=== PATIENT | female | born 1945 | race Hispanic/Latino ===

== ENCOUNTER 2020-05-18 11:31 | Inpatient (IN) | payer OTHER, MEDICARE ==
[~2020-05-18] VITALS: Ht 165.1 cm; Wt 82.6 kg
[2020-05-18 12:06] LABS: ABG BASE EXCESS -6.8 mmol/L (-2.0-3.0); ABG HCO3 15.9 mmol/L (21.0-28.0); ABG OXYGEN SATURATION 95.2 % (95.0-99.0); ABG PCO2 26 mmHg (32-45)
[2020-05-18 12:21] LABS: BASOPHILS % (AUTO) 0.1 % (0.0-5.0); EOSINOPHILS % (AUTO) 2.9 % (0.0-8.0); HEMATOCRIT 37.4 % (36-48); LYMPHOCYTES % (AUTO) 10.9 % (21.0-51.0); MEAN CORPUSCULAR HEMOGLOBIN 32.1 pg (27.0-33.0); MEAN CORPUSCULAR HGB CONC 33.4 g/dL (32.0-36.0); MEAN CORPUSCULAR VOLUME 96.1 fL (79-99); MONOCYTES % (AUTO) 8.1 % (3.0-13.0); NEUTROPHILS % (AUTO) 77.7 % (40.0-77.0); PLATELET COUNT (AUTO) 182 K/uL (130-400); RED BLOOD CELL COUNT(AUTO) 3.89 MIL/uL (4.00-5.50); RED CELL DISTRIBUTION WIDTH 12.2 % (11.0-15.5); WHITE BLOOD COUNT (AUTO) 6.9 K/uL (4.8-10.8)
[2020-05-18 12:32] LABS: ALBUMIN 3.6 g/dL (3.5-5.0); BILIRUBIN,TOTAL 0.6 mg/dL (0.2-1.0); CREATININE 1.9 mg/dL (0.5-1.5); CRP QUANTITATIVE 79.7 mg/L (0.00-9.0); POTASSIUM 3.8 mmol/L (3.5-5.1); TOTAL PROTEIN, SERUM 8.4 g/dL (6.0-8.3)
[2020-05-18 12:59] LABS: B-TYPE NATRIURETIC PEPTIDE 82 pg/mL (0-100)
[2020-05-18] MEDS ORDERED: DOXYCYCLINE HYCLATE 100 MG TABLET PO ONE (16:08)
[2020-05-18] MEDS ORDERED: SODIUM CHLORIDE 0.9% 50 ML IV ONE (16:09)
[2020-05-18] MEDS ORDERED: DEXAMETHASONE 4 MG TAB ONE (16:09)
[2020-05-18] MEDS ORDERED: CEFTRIAXONE SODIUM 1 GM ONE (16:09)
[2020-05-18] MEDS ORDERED: ENOXAPARIN SODIUM 30 MG/0.3 ML SQ ONE (16:09)
[2020-05-18] MEDS ORDERED: DEXTROSE 50%-WATER 50 ML DISP.SYRIN IV PRN ×2 (16:15→21:15)
[2020-05-18] MEDS ORDERED: GLUCAGON 1MG KIT 1 MG ML IM PRN ×2 (16:15→21:15)
[2020-05-18] MEDS ORDERED: SODIUM CHLORIDE 0.9% 1000ML 1,000 ML IV SCH (21:15)
[2020-05-18] MEDS ORDERED: SODIUM BICARBONATE 650 MG TAB PO SCH (21:15)
[2020-05-18] MEDS ORDERED: SODIUM BICARBONATE 650 MG TAB ONE (22:15)
[2020-05-18] MEDS ORDERED: INSULIN HUMULIN R 100 UNIT/ML 3ML ONE (22:26)
[2020-05-18] MEDS: INSULIN R PO SS1 SQ SCH ×2 (22:47→22:50)
[2020-05-18] MEDS: DOXYCYCLINE HYCLATE 100 MG TABLET PO SCH (22:47)
[2020-05-18] MEDS: ENOXAPARIN SODIUM 30 MG/0.3 ML SQ SCH (22:48)
[2020-05-19] MEDS ORDERED: ENOXAPARIN SODIUM 30 MG/0.3 ML SQ ONE ×2 (04:59→20:17)
[2020-05-19 05:23] LABS: HEMATOCRIT 32.8 % (36-48); MEAN CORPUSCULAR HEMOGLOBIN 32.2 pg (27.0-33.0); MEAN CORPUSCULAR HGB CONC 32.9 g/dL (32.0-36.0); MEAN CORPUSCULAR VOLUME 97.9 fL (79-99); RED BLOOD CELL COUNT(AUTO) 3.35 MIL/uL (4.00-5.50); RED CELL DISTRIBUTION WIDTH 12.3 % (11.0-15.5); WHITE BLOOD COUNT (AUTO) 4.1 K/uL (4.8-10.8)
[2020-05-19 05:23] LABS: ABG BASE EXCESS -4.9 mmol/L (-2.0-3.0); ABG HCO3 19.9 mmol/L (21.0-28.0); ABG OXYGEN SATURATION 90.1 % (95.0-99.0); ABG PCO2 36 mmHg (32-45)
[2020-05-19 06:10] LABS: CRP QUANTITATIVE 49.8 mg/L (0.00-9.0)
[2020-05-19] MEDS ORDERED: LIDOCAINE HCL-MPF 1% 2ML VIAL IV PRN (09:00)
[2020-05-19] MEDS ORDERED: PHARMACY COMMUNICATION MISC SCH (09:00)
[2020-05-19] MEDS ORDERED: POTASSIUM CHLORIDE 20 MEQ ERTAB PO PRN (09:00)
[2020-05-19] MEDS ORDERED: ENOXAPARIN SODIUM 30 MG/0.3 ML SQ SCH (09:00)
[2020-05-19] MEDS ORDERED: POTASSIUM CHLORIDE 20MEQ/100ML 100 ML IV PRN (09:00)
[2020-05-19] MEDS ORDERED: DEXAMETHASONE 4 MG TAB PO SCH (09:00)
[2020-05-19] MEDS ORDERED: POTASSIUM CHLORIDE 10% ELIXIR 20 MEQ/15 ML UDCUP PO PRN (09:00)
[2020-05-19] MEDS ORDERED: DIPHENOXYLATE HCL/ATROPINE 2.5/0.025 MG TAB PO PRN (09:15)
[2020-05-19] MEDS ORDERED: DOXYCYCLINE HYCLATE 100 MG TABLET PO ONE ×2 (10:02→20:16)
[2020-05-19] MEDS ORDERED: DEXAMETHASONE 4 MG TAB ONE (10:02)
[2020-05-19] MEDS ORDERED: CEFTRIAXONE SODIUM 1 GM ONE (10:03)
[2020-05-19] MEDS ORDERED: SODIUM BICARBONATE 650 MG TAB ONE ×3 (10:03→20:16)
[2020-05-19] MEDS ORDERED: POTASSIUM CHLORIDE 20 MEQ ERTAB PO ONE ×2 (10:05→16:17)
[2020-05-19] MEDS ORDERED: POTASSIUM CHLORIDE 10 MEQ in SODIUM CHLORIDE 0.9% 50 ML IV PRN (11:15)
[2020-05-19] MEDS ORDERED: INSULIN HUMULIN R 100 UNIT/ML 3ML ONE ×2 (13:23→18:36)
[2020-05-19] MEDS ORDERED: COMPOUND IV REFRIGERATED 1 EACH IVSOLN MISC PRN (13:45)
[2020-05-19] MEDS ORDERED: REMDESIVIR (INVESTIGATIONAL) 200 MG in SODIUM CHLORIDE 0.9% 250 ML IV SCH (15:00)
[2020-05-19] MEDS ORDERED: ALBUTEROL INHALER 90MCG/INH IH PRN (16:00)
[2020-05-19] MEDS ORDERED: POTASSIUM CHLORIDE 10MEQ/100ML 100 ML IV ONE (18:35)
[2020-05-19] MEDS ORDERED: LIDOCAINE HCL-MPF 1% 2ML VIAL ONE (18:37)
[2020-05-19] MEDS ORDERED: ALBUTEROL INHALER 90MCG/INH IH ONE (19:01)
[2020-05-19] MEDS: SODIUM BICARBONATE 650 MG TAB PO SCH ×3 (20:50→21:00)
[2020-05-19] MEDS: INSULIN R PO SS1 SQ SCH ×3 (20:54→21:00)
[2020-05-19] MEDS: ENOXAPARIN SODIUM 30 MG/0.3 ML SQ SCH ×2 (20:54→21:00)
[2020-05-19] MEDS: DOXYCYCLINE HYCLATE 100 MG TABLET PO SCH ×2 (21:00→22:51)
[2020-05-19 22:24] VITALS: BP 150/85
[2020-05-19] MEDS ORDERED: SITA100T12 PO (22:24)
[2020-05-19] MEDS ORDERED: LOSA100T58 PO (22:25)
[2020-05-19] MEDS ORDERED: AMLO-257 PO (22:26)
[2020-05-19] MEDS ORDERED: ATOR40TA69 PO (22:27)
[2020-05-19] MEDS ORDERED: METF-444 PO (22:28)
[2020-05-19] MEDS: CEFTRIAXONE SODIUM 1 GM IVP SCH (22:48)
[2020-05-19] MEDS: MULTIVITS,STRESS FORMULA/ZINC 1 TABLET PO SCH (22:50)
[2020-05-19 23:55] VITALS: BP_SYST 147; BP_SYST 92; BP_DIAS 44; BP_DIAS 78
[2020-05-20 03:44] VITALS: BP 159/78
[2020-05-20 04:52] LABS: HEMATOCRIT 37.4 % (36-48); MEAN CORPUSCULAR HEMOGLOBIN 32.1 pg (27.0-33.0); MEAN CORPUSCULAR HGB CONC 33.2 g/dL (32.0-36.0); MEAN CORPUSCULAR VOLUME 96.9 fL (79-99); RED BLOOD CELL COUNT(AUTO) 3.86 MIL/uL (4.00-5.50); RED CELL DISTRIBUTION WIDTH 12.4 % (11.0-15.5); WHITE BLOOD COUNT (AUTO) 9.7 K/uL (4.8-10.8)
[2020-05-20 05:05] LABS: ABG BASE EXCESS -5.3 mmol/L (-2.0-3.0); ABG HCO3 18.6 mmol/L (21.0-28.0); ABG OXYGEN SATURATION 90.9 % (95.0-99.0); ABG PCO2 32 mmHg (32-45)
[2020-05-20 05:06] LABS: CREATININE 1.3 mg/dL (0.5-1.5); POTASSIUM 5.2 mmol/L (3.5-5.1)
[2020-05-20] MEDS: PHARMACY COMMUNICATION MISC SCH ×2 (06:00→15:34)
[2020-05-20] MEDS: INSULIN R PO SS1 SQ SCH ×4 (06:27→20:10)
[2020-05-20 07:56] VITALS: BP 147/74
[2020-05-20] MEDS: ENOXAPARIN SODIUM 30 MG/0.3 ML SQ SCH (09:00)
[2020-05-20] MEDS: DOXYCYCLINE HYCLATE 100 MG TABLET PO SCH ×2 (09:32→20:22)
[2020-05-20] MEDS: CEFTRIAXONE SODIUM 1 GM IVP SCH (09:32)
[2020-05-20] MEDS: SODIUM BICARBONATE 650 MG TAB PO SCH ×3 (09:32→20:22)
[2020-05-20] MEDS: DEXAMETHASONE SOD PHOSPHATE 4 MG/ML 1ML VIAL IVP SCH (09:32)
[2020-05-20] MEDS: MULTIVITS,STRESS FORMULA/ZINC 1 TABLET PO SCH (12:00)
[2020-05-20 12:07] VITALS: BP 128/68
[2020-05-20] MEDS: REMDESIVIR (EUA) 520 100 MG in SODIUM CHLORIDE 0.9% 250 ML IV SCH (15:30)
[2020-05-20 16:02] LABS: ALBUMIN 2.6 g/dL (3.5-5.0); BILIRUBIN,DIRECT 0.4 mg/dL (0.0-0.3); BILIRUBIN,TOTAL 0.9 mg/dL (0.2-1.0); TOTAL PROTEIN, SERUM 6.2 g/dL (6.0-8.3)
[2020-05-20 16:32] VITALS: BP 128/91
[2020-05-20] MEDS: ENOXAPARIN SODIUM 40 MG/0.4 ML SYRINGE SQ SCH (20:23)
[2020-05-20 20:24] VITALS: BP 148/81
[2020-05-20 23:50] VITALS: BP_SYST 114; BP_SYST 146; BP_DIAS 66; BP_DIAS 98
[2020-05-21 03:41] VITALS: BP 153/78
[2020-05-21 04:39] LABS: HEMATOCRIT 38.1 % (36-48); MEAN CORPUSCULAR HEMOGLOBIN 31.9 pg (27.0-33.0); MEAN CORPUSCULAR HGB CONC 32.8 g/dL (32.0-36.0); MEAN CORPUSCULAR VOLUME 97.2 fL (79-99); RED BLOOD CELL COUNT(AUTO) 3.92 MIL/uL (4.00-5.50); RED CELL DISTRIBUTION WIDTH 12.4 % (11.0-15.5); WHITE BLOOD COUNT (AUTO) 8.7 K/uL (4.8-10.8)
[2020-05-21 04:55] LABS: CREATININE 1.3 mg/dL (0.5-1.5); POTASSIUM 4.9 mmol/L (3.5-5.1)
[2020-05-21 05:09] LABS: ALBUMIN 2.7 g/dL (3.5-5.0); BILIRUBIN,DIRECT 0.1 mg/dL (0.0-0.3); BILIRUBIN,TOTAL 0.3 mg/dL (0.2-1.0); TOTAL PROTEIN, SERUM 7.1 g/dL (6.0-8.3)
[2020-05-21] MEDS: INSULIN R PO SS1 SQ SCH ×4 (05:25→20:33)
[2020-05-21] MEDS: PHARMACY COMMUNICATION MISC SCH (06:00)
[2020-05-21 08:15] VITALS: BP 146/82
[2020-05-21] MEDS: DEXAMETHASONE SOD PHOSPHATE 4 MG/ML 1ML VIAL IVP SCH (09:13)
[2020-05-21] MEDS: CEFTRIAXONE SODIUM 1 GM IVP SCH (09:16)
[2020-05-21] MEDS: SODIUM BICARBONATE 650 MG TAB PO SCH ×3 (09:16→19:55)
[2020-05-21] MEDS: DOXYCYCLINE HYCLATE 100 MG TABLET PO SCH ×2 (09:16→19:55)
[2020-05-21] MEDS: ENOXAPARIN SODIUM 40 MG/0.4 ML SYRINGE SQ SCH ×2 (09:17→19:56)
[2020-05-21] MEDS: MULTIVITS,STRESS FORMULA/ZINC 1 TABLET PO SCH (12:00)
[2020-05-21] MEDS ORDERED: FUROSEMIDE 10 MG/ML 2ML VIAL IV SCH (12:15)
[2020-05-21 12:20] VITALS: BP 151/71
[2020-05-21] MEDS: REMDESIVIR (EUA) 520 100 MG in SODIUM CHLORIDE 0.9% 250 ML IV SCH (15:02)
[2020-05-21 16:15] VITALS: BP 148/79
[2020-05-21] MEDS: FUROSEMIDE 10 MG/ML 2ML VIAL IV SCH (19:55)
[2020-05-21 20:00] VITALS: BP 148/78
[2020-05-22] VITALS: BP 159/83
[2020-05-22 04:28] VITALS: BP 168/80
[2020-05-22 04:35] LABS: HEMATOCRIT 39.3 % (36-48); MEAN CORPUSCULAR HEMOGLOBIN 31.9 pg (27.0-33.0); MEAN CORPUSCULAR HGB CONC 33.1 g/dL (32.0-36.0); MEAN CORPUSCULAR VOLUME 96.3 fL (79-99); RED BLOOD CELL COUNT(AUTO) 4.08 MIL/uL (4.00-5.50); RED CELL DISTRIBUTION WIDTH 12.4 % (11.0-15.5); WHITE BLOOD COUNT (AUTO) 9.2 K/uL (4.8-10.8)
[2020-05-22 04:51] LABS: CREATININE 1.3 mg/dL (0.5-1.5); POTASSIUM 4.5 mmol/L (3.5-5.1)
[2020-05-22 05:13] LABS: ABG BASE EXCESS -2.2 mmol/L (-2.0-3.0); ABG HCO3 19.4 mmol/L (21.0-28.0); ABG OXYGEN SATURATION 98.1 % (95.0-99.0); ABG PCO2 26 mmHg (32-45)
[2020-05-22] MEDS ORDERED: HYDRALAZINE HCL 20 MG/ML VIAL IV PRN (05:45)
[2020-05-22] MEDS: INSULIN HUMULIN R 100 UNIT/ML 3ML SQ SCH ×4 (07:30→21:01)
[2020-05-22] MEDS: INSULIN R PO SS1 SQ SCH ×4 (07:30→21:00)
[2020-05-22 08:00] VITALS: BP 133/80
[2020-05-22] MEDS: ENOXAPARIN SODIUM 40 MG/0.4 ML SYRINGE SQ SCH ×2 (08:49→19:37)
[2020-05-22] MEDS: DOXYCYCLINE HYCLATE 100 MG TABLET PO SCH ×2 (08:49→19:37)
[2020-05-22] MEDS: SODIUM BICARBONATE 650 MG TAB PO SCH ×3 (08:49→19:37)
[2020-05-22] MEDS: CEFTRIAXONE SODIUM 1 GM IVP SCH (08:51)
[2020-05-22] MEDS: FUROSEMIDE 10 MG/ML 2ML VIAL IV SCH ×2 (08:51→19:37)
[2020-05-22] MEDS: DEXAMETHASONE SOD PHOSPHATE 4 MG/ML 1ML VIAL IVP SCH (08:51)
[2020-05-22] MEDS: PHARMACY COMMUNICATION MISC SCH (11:43)
[2020-05-22 12:00] VITALS: BP 133/71
[2020-05-22] MEDS: MULTIVITS,STRESS FORMULA/ZINC 1 TABLET PO SCH (12:00)
[2020-05-22 12:56] LABS: ALBUMIN 3.2 g/dL (3.5-5.0); BILIRUBIN,DIRECT 0.1 mg/dL (0.0-0.3); BILIRUBIN,TOTAL 0.3 mg/dL (0.2-1.0); TOTAL PROTEIN, SERUM 7.8 g/dL (6.0-8.3)
[2020-05-22] MEDS: REMDESIVIR (EUA) 520 100 MG in SODIUM CHLORIDE 0.9% 250 ML IV SCH (15:23)
[2020-05-22 16:00] VITALS: BP 120/57
[2020-05-22 20:44] VITALS: BP 135/73
[2020-05-23] VITALS (7 sets, daily range): BP systolic 101–133; BP diastolic 41–83
[2020-05-23 04:34] LABS: HEMATOCRIT 38.4 % (36-48); MEAN CORPUSCULAR HEMOGLOBIN 31.8 pg (27.0-33.0); MEAN CORPUSCULAR HGB CONC 33.1 g/dL (32.0-36.0); RED CELL DISTRIBUTION WIDTH 12.2 % (11.0-15.5); WHITE BLOOD COUNT (AUTO) 11.6 K/uL (4.8-10.8)
[2020-05-23 04:57] LABS: ALBUMIN 2.8 g/dL (3.5-5.0); BILIRUBIN,DIRECT 0.1 mg/dL (0.0-0.3); BILIRUBIN,TOTAL 0.4 mg/dL (0.2-1.0); CREATININE 1.2 mg/dL (0.5-1.5); POTASSIUM 4.1 mmol/L (3.5-5.1); TOTAL PROTEIN, SERUM 7.3 g/dL (6.0-8.3)
[2020-05-23] MEDS: INSULIN R PO SS1 SQ SCH ×4 (06:37→20:27)
[2020-05-23] MEDS: INSULIN HUMULIN R 100 UNIT/ML 3ML SQ SCH ×4 (06:37→16:49)
[2020-05-23 07:14] LABS: ABG BASE EXCESS 1.4 mmol/L (-2.0-3.0); ABG HCO3 25.2 mmol/L (21.0-28.0); ABG OXYGEN SATURATION 83.3 % (95.0-99.0); ABG PCO2 37 mmHg (32-45)
[2020-05-23] MEDS: LINAGLIPTIN 5 MG TABLET PO SCH (09:00)
[2020-05-23] MEDS: METFORMIN HCL 500 MG TABLET PO SCH ×2 (09:01→17:57)
[2020-05-23] MEDS: PHARMACY COMMUNICATION MISC SCH (09:01)
[2020-05-23] MEDS: AMLODIPINE BESYLATE 5 MG TAB PO SCH (09:01)
[2020-05-23] MEDS: LOSARTAN 100 MG TABLET PO SCH (09:01)
[2020-05-23] MEDS: DOXYCYCLINE HYCLATE 100 MG TABLET PO SCH ×2 (09:01→19:25)
[2020-05-23] MEDS: SODIUM BICARBONATE 650 MG TAB PO SCH ×3 (09:01→19:25)
[2020-05-23] MEDS: CEFTRIAXONE SODIUM 1 GM IVP SCH (09:02)
[2020-05-23] MEDS: DEXAMETHASONE SOD PHOSPHATE 4 MG/ML 1ML VIAL IVP SCH (09:02)
[2020-05-23] MEDS: ATORVASTATIN CALCIUM 40 MG TABLET PO SCH (09:02)
[2020-05-23] MEDS: FUROSEMIDE 10 MG/ML 2ML VIAL IV SCH ×2 (09:02→19:25)
[2020-05-23] MEDS: ENOXAPARIN SODIUM 40 MG/0.4 ML SYRINGE SQ SCH ×2 (09:05→19:25)
[2020-05-23] MEDS: MULTIVITS,STRESS FORMULA/ZINC 1 TABLET PO SCH (12:00)
[2020-05-23] MEDS: REMDESIVIR (EUA) 520 100 MG in SODIUM CHLORIDE 0.9% 250 ML IV SCH (14:22)
[2020-05-24] VITALS (8 sets, daily range): BP systolic 100–116; BP diastolic 42–72
[2020-05-24 04:30] LABS: BASOPHILS % (AUTO) 0.2 % (0.0-5.0); HEMATOCRIT 36.9 % (36-48); LYMPHOCYTES % (AUTO) 7.6 % (21.0-51.0); MEAN CORPUSCULAR HEMOGLOBIN 31.9 pg (27.0-33.0); MEAN CORPUSCULAR HGB CONC 33.1 g/dL (32.0-36.0); MEAN CORPUSCULAR VOLUME 96.6 fL (79-99); MONOCYTES % (AUTO) 6.2 % (3.0-13.0); PLATELET COUNT (AUTO) 264 K/uL (130-400); RED BLOOD CELL COUNT(AUTO) 3.82 MIL/uL (4.00-5.50); RED CELL DISTRIBUTION WIDTH 12.2 % (11.0-15.5); WHITE BLOOD COUNT (AUTO) 13.5 K/uL (4.8-10.8)
[2020-05-24 04:46] LABS: ALBUMIN 2.5 g/dL (3.5-5.0); BILIRUBIN,DIRECT 0.1 mg/dL (0.0-0.3); BILIRUBIN,TOTAL 0.4 mg/dL (0.2-1.0); MAGNESIUM 2.3 mg/dL (1.80-2.40); PHOSPHORUS 3.8 mg/dL (2.5-4.9); TOTAL PROTEIN, SERUM 6.7 g/dL (6.0-8.3)
[2020-05-24] MEDS: INSULIN HUMULIN R 100 UNIT/ML 3ML SQ SCH ×4 (06:21→20:08)
[2020-05-24] MEDS: INSULIN R PO SS1 SQ SCH (06:21)
[2020-05-24 06:49] LABS: ALBUMIN 2.6 g/dL (3.5-5.0); BILIRUBIN,TOTAL 0.4 mg/dL (0.2-1.0); CREATININE 1.2 mg/dL (0.5-1.5); POTASSIUM 4.4 mmol/L (3.5-5.1); TOTAL PROTEIN, SERUM 6.7 g/dL (6.0-8.3)
[2020-05-24] MEDS: LINAGLIPTIN 5 MG TABLET PO SCH (09:00)
[2020-05-24] MEDS: LOSARTAN 100 MG TABLET PO SCH (09:00)
[2020-05-24] MEDS: AMLODIPINE BESYLATE 5 MG TAB PO SCH (09:00)
[2020-05-24] MEDS: PHARMACY COMMUNICATION MISC SCH (09:27)
[2020-05-24] MEDS: DEXAMETHASONE SOD PHOSPHATE 4 MG/ML 1ML VIAL IVP SCH (09:31)
[2020-05-24] MEDS: SODIUM BICARBONATE 650 MG TAB PO SCH ×3 (09:32→20:05)
[2020-05-24] MEDS: CEFTRIAXONE SODIUM 1 GM IVP SCH (09:32)
[2020-05-24] MEDS: METFORMIN HCL 500 MG TABLET PO SCH ×2 (09:32→17:41)
[2020-05-24] MEDS: FUROSEMIDE 10 MG/ML 2ML VIAL IV SCH (09:32)
[2020-05-24] MEDS: DOXYCYCLINE HYCLATE 100 MG TABLET PO SCH (09:32)
[2020-05-24] MEDS: ATORVASTATIN CALCIUM 40 MG TABLET PO SCH (09:33)
[2020-05-24] MEDS: ENOXAPARIN SODIUM 40 MG/0.4 ML SYRINGE SQ SCH ×2 (09:33→20:05)
[2020-05-24] MEDS: MULTIVITS,STRESS FORMULA/ZINC 1 TABLET PO SCH (12:00)
[2020-05-25 03:55] VITALS: BP 121/54
[2020-05-25 04:42] LABS: ABG BASE EXCESS 2.7 mmol/L (-2.0-3.0); ABG HCO3 26.6 mmol/L (21.0-28.0); ABG OXYGEN SATURATION 85.6 % (95.0-99.0); ABG PCO2 38 mmHg (32-45)
[2020-05-25 05:08] LABS: BASOPHILS % (AUTO) 0.2 % (0.0-5.0); HEMATOCRIT 38.7 % (36-48); LYMPHOCYTES % (AUTO) 5.8 % (21.0-51.0); MEAN CORPUSCULAR HEMOGLOBIN 31.6 pg (27.0-33.0); MEAN CORPUSCULAR HGB CONC 32.8 g/dL (32.0-36.0); MEAN CORPUSCULAR VOLUME 96.3 fL (79-99); MONOCYTES % (AUTO) 6.5 % (3.0-13.0); NEUTROPHILS % (AUTO) 86.3 % (40.0-77.0); PLATELET COUNT (AUTO) 278 K/uL (130-400); RED BLOOD CELL COUNT(AUTO) 4.02 MIL/uL (4.00-5.50); RED CELL DISTRIBUTION WIDTH 12.1 % (11.0-15.5); WHITE BLOOD COUNT (AUTO) 14.2 K/uL (4.8-10.8)
[2020-05-25 05:34] LABS: ALBUMIN 2.4 g/dL (3.5-5.0); BILIRUBIN,TOTAL 0.4 mg/dL (0.2-1.0); CREATININE 1.1 mg/dL (0.5-1.5); MAGNESIUM 2.3 mg/dL (1.80-2.40); PHOSPHORUS 3.2 mg/dL (2.5-4.9); POTASSIUM 4.6 mmol/L (3.5-5.1)
[2020-05-25] MEDS: INSULIN HUMULIN R 100 UNIT/ML 3ML SQ SCH ×4 (06:05→20:05)
[2020-05-25 07:30] VITALS: BP 103/57
[2020-05-25] MEDS: SODIUM BICARBONATE 650 MG TAB PO SCH (08:49)
[2020-05-25] MEDS: LOSARTAN 100 MG TABLET PO SCH (08:49)
[2020-05-25] MEDS: ATORVASTATIN CALCIUM 40 MG TABLET PO SCH (08:49)
[2020-05-25] MEDS: METFORMIN HCL 500 MG TABLET PO SCH ×2 (08:49→17:06)
[2020-05-25] MEDS: LINAGLIPTIN 5 MG TABLET PO SCH (08:50)
[2020-05-25] MEDS: ENOXAPARIN SODIUM 40 MG/0.4 ML SYRINGE SQ SCH ×2 (08:50→20:05)
[2020-05-25] MEDS: AMLODIPINE BESYLATE 5 MG TAB PO SCH (08:51)
[2020-05-25] MEDS: DEXAMETHASONE SOD PHOSPHATE 4 MG/ML 1ML VIAL IVP SCH ×3 (08:51→20:05)
[2020-05-25] MEDS ORDERED: ZINC SULFATE 220 CAPSULE PO SCH (11:15)
[2020-05-25] MEDS: MULTIVITS,STRESS FORMULA/ZINC 1 TABLET PO SCH (11:24)
[2020-05-25 11:34] VITALS: BP 115/47
[2020-05-25 16:00] VITALS: BP 102/59
[2020-05-25] MEDS: FUROSEMIDE 10 MG/ML 2ML VIAL IV SCH (17:06)
[2020-05-25] MEDS: ASCORBIC ACID 500 MG TAB PO SCH (20:05)
[2020-05-25 20:08] VITALS: BP 119/53
[2020-05-26] VITALS (7 sets, daily range): BP systolic 102–136; BP diastolic 54–76
[2020-05-26] MEDS: FUROSEMIDE 10 MG/ML 2ML VIAL IV SCH ×2 (03:30→13:14)
[2020-05-26 04:39] LABS: HEMATOCRIT 36.3 % (36-48); MEAN CORPUSCULAR HEMOGLOBIN 31.9 pg (27.0-33.0); MEAN CORPUSCULAR HGB CONC 33.1 g/dL (32.0-36.0); MEAN CORPUSCULAR VOLUME 96.5 fL (79-99); RED BLOOD CELL COUNT(AUTO) 3.76 MIL/uL (4.00-5.50); RED CELL DISTRIBUTION WIDTH 12.1 % (11.0-15.5); WHITE BLOOD COUNT (AUTO) 12.1 K/uL (4.8-10.8)
[2020-05-26 05:15] LABS: ALBUMIN 2.3 g/dL (3.5-5.0); BILIRUBIN,TOTAL 0.5 mg/dL (0.2-1.0); CREATININE 1.2 mg/dL (0.5-1.5); POTASSIUM 5.2 mmol/L (3.5-5.1); TOTAL PROTEIN, SERUM 6.7 g/dL (6.0-8.3)
[2020-05-26] MEDS: INSULIN HUMULIN R 100 UNIT/ML 3ML SQ SCH ×4 (06:00→21:22)
[2020-05-26] MEDS: METFORMIN HCL 500 MG TABLET PO SCH ×2 (08:00→17:00)
[2020-05-26 08:37] LABS: ABG HCO3 26.5 mmol/L (21.0-28.0); ABG OXYGEN SATURATION 89.9 % (95.0-99.0); ABG PCO2 41 mmHg (32-45)
[2020-05-26] MEDS: DEXAMETHASONE SOD PHOSPHATE 4 MG/ML 1ML VIAL IVP SCH ×2 (09:00→21:20)
[2020-05-26] MEDS: MULTIVITAMIN TABLET PO SCH (09:00)
[2020-05-26] MEDS: AMLODIPINE BESYLATE 5 MG TAB PO SCH (09:00)
[2020-05-26] MEDS: ATORVASTATIN CALCIUM 40 MG TABLET PO SCH (09:00)
[2020-05-26] MEDS: ASCORBIC ACID 500 MG TAB PO SCH ×2 (09:00→21:20)
[2020-05-26] MEDS: ZINC SULFATE 220 CAPSULE PO SCH (09:00)
[2020-05-26] MEDS: LINAGLIPTIN 5 MG TABLET PO SCH (09:00)
[2020-05-26] MEDS: LOSARTAN 100 MG TABLET PO SCH (09:00)
[2020-05-26] MEDS: ENOXAPARIN SODIUM 40 MG/0.4 ML SYRINGE SQ SCH ×2 (09:00→21:24)
[2020-05-26] MEDS: MULTIVITS,STRESS FORMULA/ZINC 1 TABLET PO SCH (12:00)
[2020-05-26 18:08] LABS: CREATININE 1.4 mg/dL (0.5-1.5); POTASSIUM 5.1 mmol/L (3.5-5.1)
[2020-05-27 03:00] VITALS: BP 135/75
[2020-05-27] MEDS: FUROSEMIDE 10 MG/ML 2ML VIAL IV SCH ×2 (03:58→10:40)
[2020-05-27 04:28] LABS: ABG BASE EXCESS -0.3 mmol/L (-2.0-3.0); ABG HCO3 23.9 mmol/L (21.0-28.0); ABG OXYGEN SATURATION 86.6 % (95.0-99.0); ABG PCO2 38 mmHg (32-45)
[2020-05-27 04:33] LABS: BASOPHILS % (AUTO) 0.1 % (0.0-5.0); HEMATOCRIT 38.6 % (36-48); LYMPHOCYTES % (AUTO) 4.2 % (21.0-51.0); MEAN CORPUSCULAR HEMOGLOBIN 31.7 pg (27.0-33.0); MEAN CORPUSCULAR HGB CONC 32.1 g/dL (32.0-36.0); MEAN CORPUSCULAR VOLUME 98.7 fL (79-99); MONOCYTES % (AUTO) 4.8 % (3.0-13.0); NEUTROPHILS % (AUTO) 89.7 % (40.0-77.0); PLATELET COUNT (AUTO) 324 K/uL (130-400); RED BLOOD CELL COUNT(AUTO) 3.91 MIL/uL (4.00-5.50); RED CELL DISTRIBUTION WIDTH 12.4 % (11.0-15.5)
[2020-05-27 05:11] LABS: ALBUMIN 2.4 g/dL (3.5-5.0); BILIRUBIN,TOTAL 0.6 mg/dL (0.2-1.0); CREATININE 1.3 mg/dL (0.5-1.5); MAGNESIUM 2.7 mg/dL (1.80-2.40); PHOSPHORUS 4.6 mg/dL (2.5-4.9); POTASSIUM 5.1 mmol/L (3.5-5.1); TOTAL PROTEIN, SERUM 6.6 g/dL (6.0-8.3)
[2020-05-27] MEDS: INSULIN HUMULIN R 100 UNIT/ML 3ML SQ SCH ×4 (06:13→19:44)
[2020-05-27] MEDS: METFORMIN HCL 500 MG TABLET PO SCH ×2 (08:00→17:30)
[2020-05-27 08:30] VITALS: BP 101/57
[2020-05-27] MEDS: ZINC SULFATE 220 CAPSULE PO SCH (10:24)
[2020-05-27] MEDS: LINAGLIPTIN 5 MG TABLET PO SCH (10:24)
[2020-05-27] MEDS: LOSARTAN 100 MG TABLET PO SCH (10:24)
[2020-05-27] MEDS: ASCORBIC ACID 500 MG TAB PO SCH ×2 (10:24→19:45)
[2020-05-27] MEDS: ATORVASTATIN CALCIUM 40 MG TABLET PO SCH (10:24)
[2020-05-27] MEDS: DEXAMETHASONE SOD PHOSPHATE 4 MG/ML 1ML VIAL IVP SCH ×2 (10:24→19:45)
[2020-05-27] MEDS: MULTIVITAMIN TABLET PO SCH (10:24)
[2020-05-27] MEDS: AMLODIPINE BESYLATE 5 MG TAB PO SCH (10:24)
[2020-05-27] MEDS: ENOXAPARIN SODIUM 40 MG/0.4 ML SYRINGE SQ SCH ×2 (10:25→19:45)
[2020-05-27 12:00] VITALS: BP 111/55
[2020-05-27] MEDS: MULTIVITS,STRESS FORMULA/ZINC 1 TABLET PO SCH (12:00)
[2020-05-27 16:30] VITALS: BP 119/69
[2020-05-27 19:00] VITALS: BP 100/56
[2020-05-27 23:00] VITALS: BP 102/53
[2020-05-28 03:00] VITALS: BP 104/53
[2020-05-28 05:08] LABS: ABG BASE EXCESS -3.3 mmol/L (-2.0-3.0); ABG HCO3 20.9 mmol/L (21.0-28.0); ABG OXYGEN SATURATION 98.6 % (95.0-99.0); ABG PCO2 35 mmHg (32-45)
[2020-05-28] MEDS: INSULIN HUMULIN R 100 UNIT/ML 3ML SQ SCH ×4 (05:15→20:29)
[2020-05-28 05:16] LABS: BASOPHILS % (AUTO) 0.2 % (0.0-5.0); HEMATOCRIT 38.4 % (36-48); LYMPHOCYTES % (AUTO) 3.5 % (21.0-51.0); MEAN CORPUSCULAR HEMOGLOBIN 32.1 pg (27.0-33.0); MEAN CORPUSCULAR HGB CONC 32.3 g/dL (32.0-36.0); MEAN CORPUSCULAR VOLUME 99.5 fL (79-99); MONOCYTES % (AUTO) 4.4 % (3.0-13.0); NEUTROPHILS % (AUTO) 90.7 % (40.0-77.0); PLATELET COUNT (AUTO) 247 K/uL (130-400); RED BLOOD CELL COUNT(AUTO) 3.86 MIL/uL (4.00-5.50); RED CELL DISTRIBUTION WIDTH 12.1 % (11.0-15.5); WHITE BLOOD COUNT (AUTO) 17.9 K/uL (4.8-10.8)
[2020-05-28 05:34] LABS: ALBUMIN 2.4 g/dL (3.5-5.0); BILIRUBIN,TOTAL 0.5 mg/dL (0.2-1.0); CREATININE 1.8 mg/dL (0.5-1.5); MAGNESIUM 2.9 mg/dL (1.80-2.40); PHOSPHORUS 4.8 mg/dL (2.5-4.9); POTASSIUM 5.4 mmol/L (3.5-5.1); TOTAL PROTEIN, SERUM 6.1 g/dL (6.0-8.3)
[2020-05-28] MEDS: LACTATED RINGERS 1000ML 1,000 ML IV SCH (07:30)
[2020-05-28 08:00] VITALS: BP 125/68
[2020-05-28] MEDS: METFORMIN HCL 500 MG TABLET PO SCH ×2 (08:00→17:00)
[2020-05-28] MEDS: AMLODIPINE BESYLATE 5 MG TAB PO SCH (10:46)
[2020-05-28] MEDS: DEXAMETHASONE SOD PHOSPHATE 4 MG/ML 1ML VIAL IVP SCH ×2 (10:46→19:51)
[2020-05-28] MEDS: ATORVASTATIN CALCIUM 40 MG TABLET PO SCH (10:46)
[2020-05-28] MEDS: ZINC SULFATE 220 CAPSULE PO SCH (10:46)
[2020-05-28] MEDS: ENOXAPARIN SODIUM 40 MG/0.4 ML SYRINGE SQ SCH ×2 (10:46→19:51)
[2020-05-28] MEDS: MULTIVITAMIN TABLET PO SCH (10:46)
[2020-05-28] MEDS: LINAGLIPTIN 5 MG TABLET PO SCH (10:46)
[2020-05-28] MEDS: LOSARTAN 100 MG TABLET PO SCH (10:46)
[2020-05-28] MEDS: ASCORBIC ACID 500 MG TAB PO SCH ×2 (10:46→19:51)
[2020-05-28 12:00] VITALS: BP 128/66
[2020-05-28] MEDS: MULTIVITS,STRESS FORMULA/ZINC 1 TABLET PO SCH (13:57)
[2020-05-28] MEDS ORDERED: SODIUM POLYSTYRENE SULFONATE 15 GM/60 ML ML PO SCH (15:15)
[2020-05-28 16:00] VITALS: BP 123/61
[2020-05-28] MEDS ORDERED: ACETAMINOPHEN 325 MG TAB ONE (17:57)
[2020-05-28 19:00] VITALS: BP 103/45
[2020-05-28 23:00] VITALS: BP 113/61
[2020-05-29 03:00] VITALS: BP 122/59
[2020-05-29] MEDS: LACTATED RINGERS 1000ML 1,000 ML IV SCH (03:30)
[2020-05-29 05:05] LABS: BASOPHILS % (AUTO) 0.1 % (0.0-5.0); EOSINOPHILS % (AUTO) 0.1 % (0.0-8.0); HEMATOCRIT 39.7 % (36-48); LYMPHOCYTES % (AUTO) 3.8 % (21.0-51.0); MEAN CORPUSCULAR HEMOGLOBIN 31.6 pg (27.0-33.0); MEAN CORPUSCULAR HGB CONC 32.7 g/dL (32.0-36.0); MEAN CORPUSCULAR VOLUME 96.4 fL (79-99); MONOCYTES % (AUTO) 3.6 % (3.0-13.0); NEUTROPHILS % (AUTO) 91.6 % (40.0-77.0); PLATELET COUNT (AUTO) 135 K/uL (130-400); RED BLOOD CELL COUNT(AUTO) 4.12 MIL/uL (4.00-5.50); RED CELL DISTRIBUTION WIDTH 11.8 % (11.0-15.5); WHITE BLOOD COUNT (AUTO) 16.5 K/uL (4.8-10.8)
[2020-05-29 05:28] LABS: ALBUMIN 2.4 g/dL (3.5-5.0); BILIRUBIN,TOTAL 0.5 mg/dL (0.2-1.0); CREATININE 1.5 mg/dL (0.5-1.5); MAGNESIUM 3.1 mg/dL (1.80-2.40); PHOSPHORUS 5.3 mg/dL (2.5-4.9); POTASSIUM 5.5 mmol/L (3.5-5.1); TOTAL PROTEIN, SERUM 6.8 g/dL (6.0-8.3)
[2020-05-29] MEDS: INSULIN HUMULIN R 100 UNIT/ML 3ML SQ SCH ×4 (05:57→19:47)
[2020-05-29 07:30] VITALS: BP 111/61
[2020-05-29] MEDS: ENOXAPARIN SODIUM 40 MG/0.4 ML SYRINGE SQ SCH ×2 (09:26→20:16)
[2020-05-29] MEDS: MULTIVITAMIN TABLET PO SCH (09:27)
[2020-05-29] MEDS: ZINC SULFATE 220 CAPSULE PO SCH (09:27)
[2020-05-29] MEDS: ATORVASTATIN CALCIUM 40 MG TABLET PO SCH (09:27)
[2020-05-29] MEDS: ASCORBIC ACID 500 MG TAB PO SCH ×2 (09:27→20:16)
[2020-05-29] MEDS: DEXAMETHASONE SOD PHOSPHATE 4 MG/ML 1ML VIAL IVP SCH ×2 (09:27→20:16)
[2020-05-29] MEDS: AMLODIPINE BESYLATE 5 MG TAB PO SCH (09:27)
[2020-05-29] MEDS: LOSARTAN 100 MG TABLET PO SCH (09:27)
[2020-05-29] MEDS: METFORMIN HCL 500 MG TABLET PO SCH ×2 (09:45→17:03)
[2020-05-29] MEDS: LINAGLIPTIN 5 MG TABLET PO SCH (10:35)
[2020-05-29] MEDS: MULTIVITS,STRESS FORMULA/ZINC 1 TABLET PO SCH (12:17)
[2020-05-29 12:38] VITALS: BP 103/52
[2020-05-29 17:29] VITALS: BP 117/55
[2020-05-29 19:29] VITALS: BP 100/70
[2020-05-29 23:07] VITALS: BP 115/56
[2020-05-30 03:59] VITALS: BP 105/58
[2020-05-30 04:05] LABS: ABG BASE EXCESS -2.8 mmol/L (-2.0-3.0); ABG OXYGEN SATURATION 92.3 % (95.0-99.0); ABG PCO2 34 mmHg (32-45)
[2020-05-30 04:51] LABS: BASOPHILS % (AUTO) 0.1 % (0.0-5.0); HEMATOCRIT 38.1 % (36-48); LYMPHOCYTES % (AUTO) 2.4 % (21.0-51.0); MEAN CORPUSCULAR HEMOGLOBIN 31.5 pg (27.0-33.0); MEAN CORPUSCULAR HGB CONC 32.3 g/dL (32.0-36.0); MEAN CORPUSCULAR VOLUME 97.4 fL (79-99); MONOCYTES % (AUTO) 1.4 % (3.0-13.0); NEUTROPHILS % (AUTO) 95.6 % (40.0-77.0); PLATELET COUNT (AUTO) 297 K/uL (130-400); RED BLOOD CELL COUNT(AUTO) 3.91 MIL/uL (4.00-5.50); RED CELL DISTRIBUTION WIDTH 11.9 % (11.0-15.5); WHITE BLOOD COUNT (AUTO) 16.4 K/uL (4.8-10.8)
[2020-05-30 05:10] LABS: ALBUMIN 2.4 g/dL (3.5-5.0); BILIRUBIN,TOTAL 0.6 mg/dL (0.2-1.0); CREATININE 1.6 mg/dL (0.5-1.5); MAGNESIUM 2.6 mg/dL (1.80-2.40); PHOSPHORUS 4.6 mg/dL (2.5-4.9); POTASSIUM 5.3 mmol/L (3.5-5.1); TOTAL PROTEIN, SERUM 6.5 g/dL (6.0-8.3)
[2020-05-30] MEDS: INSULIN HUMULIN R 100 UNIT/ML 3ML SQ SCH ×5 (07:16→20:57)
[2020-05-30 08:00] VITALS: BP 116/45
[2020-05-30] MEDS ORDERED: LOSARTAN 100 MG TABLET PO SCH (09:00)
[2020-05-30] MEDS: ZINC SULFATE 220 CAPSULE PO SCH (09:22)
[2020-05-30] MEDS: AMLODIPINE BESYLATE 5 MG TAB PO SCH (09:22)
[2020-05-30] MEDS: ENOXAPARIN SODIUM 40 MG/0.4 ML SYRINGE SQ SCH ×2 (09:22→20:27)
[2020-05-30] MEDS: ATORVASTATIN CALCIUM 40 MG TABLET PO SCH (09:22)
[2020-05-30] MEDS: ASCORBIC ACID 500 MG TAB PO SCH ×2 (09:22→20:27)
[2020-05-30] MEDS: LINAGLIPTIN 5 MG TABLET PO SCH (09:22)
[2020-05-30] MEDS: MULTIVITAMIN TABLET PO SCH (09:22)
[2020-05-30] MEDS: METFORMIN HCL 500 MG TABLET PO SCH (09:22)
[2020-05-30 11:53] VITALS: BP 116/45
[2020-05-30] MEDS: MULTIVITS,STRESS FORMULA/ZINC 1 TABLET PO SCH (14:06)
[2020-05-30 17:02] VITALS: BP 110/56
[2020-05-30 20:40] VITALS: BP 94/48
[2020-05-30 23:50] VITALS: BP 109/45
[2020-05-31] VITALS (8 sets, daily range): BP systolic 81–127; BP diastolic 44–58
[2020-05-31] MEDS: INSULIN HUMULIN R 100 UNIT/ML 3ML SQ SCH ×4 (06:29→20:29)
[2020-05-31] MEDS: ASCORBIC ACID 500 MG TAB PO SCH ×2 (10:25→20:17)
[2020-05-31] MEDS: ZINC SULFATE 220 CAPSULE PO SCH (10:25)
[2020-05-31] MEDS: AMLODIPINE BESYLATE 5 MG TAB PO SCH (10:25)
[2020-05-31] MEDS: MULTIVITAMIN TABLET PO SCH (10:25)
[2020-05-31] MEDS: ENOXAPARIN SODIUM 40 MG/0.4 ML SYRINGE SQ SCH ×2 (10:26→20:17)
[2020-05-31] MEDS: ATORVASTATIN CALCIUM 40 MG TABLET PO SCH (10:26)
[2020-05-31] MEDS: MULTIVITS,STRESS FORMULA/ZINC 1 TABLET PO SCH (12:17)
[2020-05-31 14:44] LABS: BASOPHILS % (AUTO) 0.1 % (0.0-5.0); EOSINOPHILS % (AUTO) 0.2 % (0.0-8.0); HEMATOCRIT 35.4 % (36-48); LYMPHOCYTES % (AUTO) 3.6 % (21.0-51.0); MEAN CORPUSCULAR HEMOGLOBIN 32.6 pg (27.0-33.0); MEAN CORPUSCULAR HGB CONC 33.6 g/dL (32.0-36.0); MONOCYTES % (AUTO) 3.2 % (3.0-13.0); PLATELET COUNT (AUTO) 171 K/uL (130-400); RED BLOOD CELL COUNT(AUTO) 3.65 MIL/uL (4.00-5.50); RED CELL DISTRIBUTION WIDTH 11.9 % (11.0-15.5); WHITE BLOOD COUNT (AUTO) 22.5 K/uL (4.8-10.8)
[2020-05-31 14:55] LABS: CREATININE 1.6 mg/dL (0.5-1.5); POTASSIUM 4.3 mmol/L (3.5-5.1)
[2020-05-31 16:40] LABS: ABG BASE EXCESS -1.5 mmol/L (-2.0-3.0); ABG HCO3 21.9 mmol/L (21.0-28.0); ABG OXYGEN SATURATION 89.5 % (95.0-99.0); ABG PCO2 33 mmHg (32-45)
[2020-06-01] VITALS (7 sets, daily range): BP systolic 94–117; BP diastolic 47–80
[2020-06-01 04:57] LABS: BASOPHILS % (AUTO) 0.2 % (0.0-5.0); EOSINOPHILS % (AUTO) 0.4 % (0.0-8.0); HEMATOCRIT 34.6 % (36-48); LYMPHOCYTES % (AUTO) 4.2 % (21.0-51.0); MEAN CORPUSCULAR HEMOGLOBIN 31.9 pg (27.0-33.0); MEAN CORPUSCULAR HGB CONC 33.2 g/dL (32.0-36.0); MEAN CORPUSCULAR VOLUME 96.1 fL (79-99); MONOCYTES % (AUTO) 2.7 % (3.0-13.0); NEUTROPHILS % (AUTO) 91.4 % (40.0-77.0); PLATELET COUNT (AUTO) 188 K/uL (130-400); RED CELL DISTRIBUTION WIDTH 11.9 % (11.0-15.5); WHITE BLOOD COUNT (AUTO) 18.7 K/uL (4.8-10.8)
[2020-06-01 05:13] LABS: CREATININE 1.3 mg/dL (0.5-1.5); POTASSIUM 3.6 mmol/L (3.5-5.1)
[2020-06-01] MEDS: INSULIN HUMULIN R 100 UNIT/ML 3ML SQ SCH ×4 (07:27→22:12)
[2020-06-01] MEDS: ASCORBIC ACID 500 MG TAB PO SCH ×2 (09:08→22:07)
[2020-06-01] MEDS: ATORVASTATIN CALCIUM 40 MG TABLET PO SCH (09:08)
[2020-06-01] MEDS: ENOXAPARIN SODIUM 40 MG/0.4 ML SYRINGE SQ SCH ×2 (09:08→22:08)
[2020-06-01] MEDS: ZINC SULFATE 220 CAPSULE PO SCH (09:08)
[2020-06-01] MEDS: MULTIVITAMIN TABLET PO SCH (09:08)
[2020-06-01] MEDS: METHYLPREDNISOLONE SOD SUCC 125MG/2ML VIAL IVP SCH ×3 (11:59→22:09)
[2020-06-01] MEDS: MULTIVITS,STRESS FORMULA/ZINC 1 TABLET PO SCH (16:32)
[2020-06-01] MEDS ORDERED: GLUCAGON 1MG KIT 1 MG ML IM PRN (21:00)
[2020-06-01] MEDS ORDERED: INSULIN HUMULIN R 100 UNIT/ML 3ML SQ SCH (21:00)
[2020-06-01] MEDS ORDERED: DEXTROSE 50%-WATER 50 ML DISP.SYRIN IV PRN (21:00)
[2020-06-02 03:56] VITALS: BP 133/62
[2020-06-02 05:16] LABS: HEMATOCRIT 33.4 % (36-48); MEAN CORPUSCULAR HEMOGLOBIN 32.2 pg (27.0-33.0); MEAN CORPUSCULAR HGB CONC 33.8 g/dL (32.0-36.0); MEAN CORPUSCULAR VOLUME 95.2 fL (79-99); RED BLOOD CELL COUNT(AUTO) 3.51 MIL/uL (4.00-5.50); RED CELL DISTRIBUTION WIDTH 11.8 % (11.0-15.5); WHITE BLOOD COUNT (AUTO) 13.9 K/uL (4.8-10.8)
[2020-06-02 05:43] LABS: ALBUMIN 2.1 g/dL (3.5-5.0); BILIRUBIN,TOTAL 0.5 mg/dL (0.2-1.0); CREATININE 1.3 mg/dL (0.5-1.5); POTASSIUM 3.9 mmol/L (3.5-5.1); TOTAL PROTEIN, SERUM 6.5 g/dL (6.0-8.3)
[2020-06-02] MEDS: METHYLPREDNISOLONE SOD SUCC 125MG/2ML VIAL IVP SCH ×3 (06:37→21:46)
[2020-06-02] MEDS: INSULIN HUMULIN R 100 UNIT/ML 3ML SQ SCH ×5 (06:38→21:51)
[2020-06-02 07:09] LABS: ABG BASE EXCESS 2.8 mmol/L (-2.0-3.0); ABG HCO3 25.8 mmol/L (21.0-28.0); ABG OXYGEN SATURATION 95.6 % (95.0-99.0); ABG PCO2 35 mmHg (32-45)
[2020-06-02 07:43] VITALS: BP 127/61
[2020-06-02] MEDS: ZINC SULFATE 220 CAPSULE PO SCH (09:00)
[2020-06-02] MEDS: ATORVASTATIN CALCIUM 40 MG TABLET PO SCH (09:00)
[2020-06-02] MEDS: MULTIVITAMIN TABLET PO SCH (09:00)
[2020-06-02] MEDS: ASCORBIC ACID 500 MG TAB PO SCH ×2 (09:00→21:51)
[2020-06-02] MEDS: ENOXAPARIN SODIUM 40 MG/0.4 ML SYRINGE SQ SCH ×2 (10:06→21:52)
[2020-06-02] MEDS: MULTIVITS,STRESS FORMULA/ZINC 1 TABLET PO SCH (12:00)
[2020-06-02 12:21] VITALS: BP 111/59
[2020-06-02 16:21] VITALS: BP 107/70
[2020-06-02 19:00] VITALS: BP 120/72
[2020-06-02] MEDS ORDERED: INSULIN GLARGINE 100 UNITS/ML 10 ML VIAL SQ SCH (21:00)
[2020-06-02 23:33] VITALS: BP 129/81
[2020-06-03] MEDS: METHYLPREDNISOLONE SOD SUCC 125MG/2ML VIAL IVP SCH ×2 (01:51→12:32)
[2020-06-03 03:45] VITALS: BP 141/71
[2020-06-03 04:35] LABS: HEMATOCRIT 32.8 % (36-48); MEAN CORPUSCULAR HEMOGLOBIN 31.7 pg (27.0-33.0); MEAN CORPUSCULAR HGB CONC 32.9 g/dL (32.0-36.0); MEAN CORPUSCULAR VOLUME 96.2 fL (79-99); RED BLOOD CELL COUNT(AUTO) 3.41 MIL/uL (4.00-5.50); RED CELL DISTRIBUTION WIDTH 11.8 % (11.0-15.5); WHITE BLOOD COUNT (AUTO) 17.9 K/uL (4.8-10.8)
[2020-06-03 04:56] LABS: CREATININE 1.5 mg/dL (0.5-1.5); POTASSIUM 3.6 mmol/L (3.5-5.1)
[2020-06-03] MEDS: INSULIN HUMULIN R 100 UNIT/ML 3ML SQ SCH ×4 (06:21→20:43)
[2020-06-03 08:00] VITALS: BP 127/69
[2020-06-03] MEDS: ATORVASTATIN CALCIUM 40 MG TABLET PO SCH (10:40)
[2020-06-03] MEDS: ENOXAPARIN SODIUM 40 MG/0.4 ML SYRINGE SQ SCH ×2 (10:40→20:32)
[2020-06-03] MEDS: MULTIVITAMIN TABLET PO SCH (10:40)
[2020-06-03] MEDS: ASCORBIC ACID 500 MG TAB PO SCH ×2 (10:40→20:31)
[2020-06-03] MEDS: ZINC SULFATE 220 CAPSULE PO SCH (10:40)
[2020-06-03] MEDS: MULTIVITS,STRESS FORMULA/ZINC 1 TABLET PO SCH (12:32)
[2020-06-03 12:54] VITALS: BP 122/64
[2020-06-03 16:00] VITALS: BP_DIAS 134
[2020-06-03] MEDS: METHYLPREDNISOLONE SOD SUCC 40MG/ML 1ML IVP SCH (17:47)
[2020-06-03 19:07] VITALS: BP 127/64
[2020-06-03] MEDS: INSULIN GLARGINE 100 UNITS/ML 10 ML VIAL SQ SCH (20:44)
[2020-06-03 23:00] VITALS: BP 116/59
[2020-06-04 03:28] VITALS: BP 141/72
[2020-06-04 05:21] LABS: HEMATOCRIT 32.8 % (36-48); MEAN CORPUSCULAR HEMOGLOBIN 31.9 pg (27.0-33.0); MEAN CORPUSCULAR HGB CONC 33.5 g/dL (32.0-36.0); MEAN CORPUSCULAR VOLUME 95.1 fL (79-99); RED BLOOD CELL COUNT(AUTO) 3.45 MIL/uL (4.00-5.50); RED CELL DISTRIBUTION WIDTH 11.9 % (11.0-15.5); WHITE BLOOD COUNT (AUTO) 17.3 K/uL (4.8-10.8)
[2020-06-04 05:45] LABS: BILIRUBIN,TOTAL 0.4 mg/dL (0.2-1.0); CREATININE 1.5 mg/dL (0.5-1.5); MAGNESIUM 2.7 mg/dL (1.80-2.40); PHOSPHORUS 2.5 mg/dL (2.5-4.9); POTASSIUM 4.1 mmol/L (3.5-5.1); TOTAL PROTEIN, SERUM 6.4 g/dL (6.0-8.3)
[2020-06-04] MEDS: METHYLPREDNISOLONE SOD SUCC 40MG/ML 1ML IVP SCH ×2 (06:23→17:56)
[2020-06-04] MEDS: INSULIN HUMULIN R 100 UNIT/ML 3ML SQ SCH ×4 (06:24→21:33)
[2020-06-04 07:27] LABS: ABG BASE EXCESS 4.9 mmol/L (-2.0-3.0); ABG HCO3 29.3 mmol/L (21.0-28.0); ABG OXYGEN SATURATION 93.8 % (95.0-99.0); ABG PCO2 43 mmHg (32-45)
[2020-06-04 08:00] VITALS: BP 126/64
[2020-06-04] MEDS: MULTIVITAMIN TABLET PO SCH (10:22)
[2020-06-04] MEDS: FLUCONAZOLE 100 MG TAB PO SCH (10:24)
[2020-06-04] MEDS: ATORVASTATIN CALCIUM 40 MG TABLET PO SCH (10:24)
[2020-06-04] MEDS: ENOXAPARIN SODIUM 40 MG/0.4 ML SYRINGE SQ SCH ×2 (10:24→21:34)
[2020-06-04] MEDS: ZINC SULFATE 220 CAPSULE PO SCH (10:24)
[2020-06-04] MEDS: ASCORBIC ACID 500 MG TAB PO SCH ×2 (10:24→21:32)
[2020-06-04] MEDS: INSULIN GLARGINE 100 UNITS/ML 10 ML VIAL SQ SCH ×2 (10:26→21:33)
[2020-06-04 12:00] VITALS: BP 112/54
[2020-06-04] MEDS: MULTIVITS,STRESS FORMULA/ZINC 1 TABLET PO SCH (12:49)
[2020-06-04 16:00] VITALS: BP 127/66
[2020-06-04 20:54] VITALS: BP 115/54
[2020-06-05 00:14] VITALS: BP 105/56
[2020-06-05 04:18] VITALS: BP 100/55
[2020-06-05 05:04] LABS: HEMATOCRIT 25.4 % (36-48); MEAN CORPUSCULAR HEMOGLOBIN 32.1 pg (27.0-33.0); MEAN CORPUSCULAR HGB CONC 33.9 g/dL (32.0-36.0); MEAN CORPUSCULAR VOLUME 94.8 fL (79-99); NUCLEATED RED BLOOD CELLS 0.2 % (0.0-0.19); RED BLOOD CELL COUNT(AUTO) 2.68 MIL/uL (4.00-5.50); RED CELL DISTRIBUTION WIDTH 11.8 % (11.0-15.5); WHITE BLOOD COUNT (AUTO) 22.8 K/uL (4.8-10.8)
[2020-06-05 05:18] LABS: CREATININE 1.5 mg/dL (0.5-1.5); CRP QUANTITATIVE 11.9 mg/L (0.00-9.0)
[2020-06-05] MEDS ORDERED: METHYLPREDNISOLONE SOD SUCC 40MG/ML 1ML IVP SCH (06:00)
[2020-06-05] MEDS: INSULIN HUMULIN R 100 UNIT/ML 3ML SQ SCH (06:05)
[2020-06-05 08:00] VITALS: BP 93/53
[2020-06-05] MEDS ORDERED: INSULIN GLARGINE 100 UNITS/ML 10 ML VIAL SQ SCH (09:00)
[2020-06-05] MEDS: ZINC SULFATE 220 CAPSULE PO SCH (10:02)
[2020-06-05] MEDS: ATORVASTATIN CALCIUM 40 MG TABLET PO SCH (10:02)
[2020-06-05] MEDS: ASCORBIC ACID 500 MG TAB PO SCH (10:03)
[2020-06-05] MEDS: ENOXAPARIN SODIUM 40 MG/0.4 ML SYRINGE SQ SCH (10:03)
[2020-06-05] MEDS: FLUCONAZOLE 100 MG TAB PO SCH (10:03)
[2020-06-05] MEDS: MULTIVITAMIN TABLET PO SCH (10:03)
[2020-06-05] MEDS ORDERED: ONDANSETRON HCL 4 MG/2 ML VIAL ONE (10:57)
[2020-06-05] MEDS ORDERED: MIDAZOLAM HCL 1 MG/ML 2ML VIAL ONE ×2 (11:06→11:10)
[2020-06-05 11:29] LABS: HEMATOCRIT 24.9 % (36-48); MEAN CORPUSCULAR HEMOGLOBIN 32.5 pg (27.0-33.0); MEAN CORPUSCULAR HGB CONC 31.3 g/dL (32.0-36.0); MEAN CORPUSCULAR VOLUME 103.8 fL (79-99); NUCLEATED RED BLOOD CELLS 0.5 % (0.0-0.19); PLATELET COUNT (AUTO) 183 K/uL (130-400); RED CELL DISTRIBUTION WIDTH 12.2 % (11.0-15.5); WHITE BLOOD COUNT (AUTO) 26.6 K/uL (4.8-10.8)
[2020-06-05] MEDS ORDERED: NOREPINEPHRINE 4MG/NS 250ML 250 ML IV ONE (11:34)
[2020-06-05 11:42] LABS: INR 1.06 (0.85-1.15); PARTIAL THROMBOPLASTIN TIME 29.5 SEC (26.3-35.5); PROTHROMBIN TIME 11.4 SEC (9.6-11.6)
[2020-06-05 11:44] LABS: CREATININE 2.3 mg/dL (0.5-1.5); POTASSIUM 4.7 mmol/L (3.5-5.1)
[2020-06-05] MEDS ORDERED: NOREPINEPHRINE 4MG/NS 250ML 4 MG/250 ML IV.SOLN IV SCH (11:45)
[2020-06-05] MEDS ORDERED: MIDAZOLAM 100MG-0.9% NS 100ML 100ML BAG IV SCH (11:45)
[2020-06-05] MEDS ORDERED: PANTOPRAZOLE SODIUM 80 MG in SODIUM CHLORIDE 0.9% 100 ML IVP SCH (11:57)
[2020-06-05] MEDS ORDERED: NOREPINEPHRINE 4MG/NS 250ML IV SCH (12:00)
[2020-06-05] MEDS ORDERED: PHARMACY COMMUNICATION MISC SCH (12:15)
[2020-06-05] MEDS ORDERED: SODIUM BICARB 50MEQ 50ML VIAL 150 MEQ in DEXTROSE 5%-WATER 1,000 ML IV SCH (12:15)
[2020-06-05] MEDS ORDERED: MIDAZOLAM 100MG-0.9% NS 100ML 100 ML IV SCH (12:15)
[2020-06-05 12:18] LABS: LYMPHOCYTES % (MANUAL) 7 % (22-44); MAN.DIFF COMMENT-IMPRESSION MANUAL DIFFERENTIAL; MONOCYTES % (MANUAL) 3 % (2-9); PLATELET MORPHOLOGY COMMENT ADEQUATE; SEGMENTED NEUTROPHILS % 90 % (40-70)
[2020-06-05] MEDS ORDERED: ZOSYN 3.375GM+NS 50ML 50 ML IV SCH (12:30)
[2020-06-05] MEDS ORDERED: VASOPRESSIN 20 UNITS in SODIUM CHLORIDE 0.9% 100 ML IV SCH (12:45)
[2020-06-05] MEDS ORDERED: EPINEPHRINE 5 MG in SODIUM CHLORIDE 0.9% 250 ML IV SCH (12:56)
[2020-06-07 16:09] LABS: HEPATITIS Bs ANTIGEN SCREEN P Negative (Negative)
== END 2020-06-05 13:19 | disposition expired | DRG 208 ==
LOC: EDH 11:31 → EDHIP 13:50 → 2AH 05-19 21:35 → 2BH 06-05 11:52
PROVIDERS: ADMIT Internal Medicine Infectious Disease; ATTEND Internal Medicine Infectious Disease
PROC: XW033E5 Introduction of Remdesivir Anti-infective into Peripheral Vein, Percutaneous Approach, New Technology Group 5 (ICD-10-PCS; 2020-05-20)
PROC: XW13325 Transfusion of Convalescent Plasma (Nonautologous) into Peripheral Vein, Percutaneous Approach, New Technology Group 5 (ICD-10-PCS; 2020-05-21)
PROC: 02HV33Z Insertion of Infusion Device into Superior Vena Cava, Percutaneous Approach (ICD-10-PCS; principal; 2020-06-05)
PROC: B548ZZA Ultrasonography of Superior Vena Cava, Guidance (ICD-10-PCS; 2020-06-05)
PROC: 04HY32Z Insertion of Monitoring Device into Lower Artery, Percutaneous Approach (ICD-10-PCS; 2020-06-05)
PROC: 5A12012 Performance of Cardiac Output, Single, Manual (ICD-10-PCS; 2020-06-05)
PROC: 0BH17EZ Insertion of Endotracheal Airway into Trachea, Via Natural or Artificial Opening (ICD-10-PCS; 2020-06-05)
PROC: 5A1935Z Respiratory Ventilation, Less than 24 Consecutive Hours (ICD-10-PCS; 2020-06-05)
DX: U07.1 COVID-19 (principal); A41.89 Other specified sepsis; J12.89 Other viral pneumonia; J96.01 Acute respiratory failure with hypoxia; N17.9 Acute kidney failure, unspecified; E87.1 Hypo-osmolality and hyponatremia; N39.0 Urinary tract infection, site not specified; I46.9 Cardiac arrest, cause unspecified; K21.9 Gastro-esophageal reflux disease without esophagitis; I10 Essential (primary) hypertension; Z93.1 Gastrostomy status; Z74.01 Bed confinement status; K29.70 Gastritis, unspecified, without bleeding; E86.0 Dehydration; D64.9 Anemia, unspecified; E11.65 Type 2 diabetes mellitus with hyperglycemia; E66.9 Obesity, unspecified; Z68.30 Body mass index [BMI] 30.0-30.9, adult; E78.5 Hyperlipidemia, unspecified; E87.5 Hyperkalemia; E66.01 Morbid (severe) obesity due to excess calories; E87.6 Hypokalemia; F03.90 Unspecified dementia, unspecified severity, without behavioral disturbance, psychotic disturbance, mood disturbance, and anxiety; E87.8 Other disorders of electrolyte and fluid balance, not elsewhere classified; L98.429 Non-pressure chronic ulcer of back with unspecified severity; R13.12 Dysphagia, oropharyngeal phase; T38.0X5A Adverse effect of glucocorticoids and synthetic analogues, initial encounter; Y92.89 Other specified places as the place of occurrence of the external cause; Z66 Do not resuscitate; Z83.3 Family history of diabetes mellitus; Z90.710 Acquired absence of both cervix and uterus
CPT/HCPCS: 31500; 36415; 36600; 71045; 71250; 80048; 80053; 80076; 82248; 82435; 82728; 82803; 82947; 82948; 83605; 83615; 83735; 83880; 84100; 84132; 84145; 84295; 85018; 85025; 85027; 85378; 85610; 85730; 86140; 86701; 86850; 86900; 86901; 86927; 87040; 87340; 87390; 87426; 87520; 87804; 92950; 93005; 94002; 99291; C9113; G0378; J0171; J0696; J1100; J1650; J1815; J1940; J2250; J2405; J2920; J2930; J3490; J7050; J7070; J7120; J8540